=== PATIENT | female | born 1975 | race African-American/Black ===

== ENCOUNTER 2018-02-10 21:36 | Emergency (ER) | payer OTHER ==
[2018-02-10 21:41] VITALS: BP 101/59; PULSE 76; TEMP 98.3; BMI 28.1
--- NOTE | 2018-02-10 21:44 | PDOC ---
Rapid Medical Evaluation Chief Complaint: Pain Time Seen by Provider: 02/10/18 21:42 Medical Evaluation: Allergies Allergy/AdvReac Type Severity Reaction Status Date / Time No Known Allergies Allergy Verified 02/10/18 21:41 Vital Signs Temp Pulse Resp BP Pulse Ox 98.3 F 76 18 101/59 100 02/10/18 21:37 02/10/18 21:37 02/10/18 21:37 02/10/18 21:37 02/10/18 21:37 02/10/18 21:43 I have performed a brief in-person evaluation of this patient. The patient presents with a chief complaint of: left rib pain x 1 week Pertinent physical exam findings: well appearing, no SOB, lungs ctab I have ordered the following: x-ray, urine The patient will proceed to the ED for further evaluation. Discharge Disposition - Diagnosis Rib pain on left side - Referrals - Patient Instructions - Post Discharge Activity
--- NOTE | 2018-02-10 22:00 | PDOC ---
History of Present Illness - General Chief Complaint: Pain Stated Complaint: PAIN, ACUTE Time Seen by Provider: 02/10/18 21:42 - History of Present Illness Initial Comments: 6-year-old healthy active female with past medical history significant for hypothyroidism presents for evaluation of atraumatic onset of left-sided mid back pain 5 days. No radiation of symptoms her pain is exacerbated with activity relieved with rest and free of radiation. 02/10/18 21:57 Past History - Past Medical History Allergies/Adverse Reactions: Allergies Allergy/AdvReac Type Severity Reaction Status Date / Time No Known Allergies Allergy Verified 02/10/18 21:41 Home Medications: Ambulatory Orders Hydrocortisone [Cortef -] 20 mg PO DAILY 05/31/16 Levothyroxine [Synthroid -] 100 mcg PO DAILY 05/31/16 COPD: No Thyroid Disease: Yes - Suicide/Smoking/Psychosocial Hx Smoking History: Never smoked Hx Alcohol Use: No Drug/Substance Use Hx: No Substance Use Type: None Review of Systems - Review of Systems Musculoskeletal: Yes: Back Pain All Other Systems: Reviewed and Negative *Physical Exam - Vital Signs Last Vital Signs Temp Pulse Resp BP Pulse Ox 98.3 F 76 18 101/59 100 02/10/18 21:37 02/10/18 21:37 02/10/18 21:37 02/10/18 21:37 02/10/18 21:37 - Physical Exam Comments: GENERAL: The patient is awake, alert, and fully oriented, in no acute distress. HEAD: Normal with no signs of trauma. EYES: sclera anicteric, conjunctiva clear. ENT: Ears normal NECK: Normal range of motion LUNGS: Breath sounds equal, clear to auscultation bilaterally. No wheezes, and no crackles. HEART: S1 and S2 without murmur, rub or gallop. ABDOMEN: Soft, nontender, normoactive bowel sounds. No guarding, no rebound. No masses. EXTREMITIES: Normal range of motion, no edema. No clubbing or cyanosis. No cords, erythema, or tenderness. NEUROLOGICAL: Cranial nerves II through XII grossly intact. Normal speech, normal gait. PSYCH: Normal mood, normal affect. SKIN: Warm, Dry, normal turgor, no rashes or lesions noted. Thoracic spine skin color and temperature are normal there is mild tenderness about the intercostals about ribs 10 and 11 and 12. She has no gross sensorimotor deficits in either upper or lower extremities. She's neurovascularly intact her pain is exacerbated with rotation to the right side pain is on the left side. 02/10/18 21:58 Medical Decision Making - Medical Decision Making no Relief with Toradol her chest x-ray and a left-sided rib series as well as a UA 02/10/18 22:36 *DC/Admit/Observation/Transfer Diagnosis at time of Disposition: Intercostal muscle strain Diagnosis at time of Disposition: (Ruled Out): Rib pain on left side - Referrals Referrals: Cornelio Jean [Non Staff, Medical] - - Patient Instructions Printed Discharge Instructions: Muscle Strain - Post Discharge Activity
[2018-02-10] MEDS ORDERED: KETOROLAC TROMETHAMINE 60 MG/2 ML VIAL ONE (22:19)
[2018-02-10] MEDS ORDERED: KETOROLAC TROMETHAMINE 60 MG/2 ML VIAL IM ONE (22:19)
[2018-02-10 22:57] LABS: URINE APPEARANCE CLEAR; URINE BILIRUBIN NEGATIVE (<2.0 mg/dL); URINE COLOR YELLOW; URINE GLUCOSE (UA) NEGATIVE (NEGATIVE); URINE KETONE NEGATIVE (NEGATIVE); URINE LEUK ESTERASE NEGATIVE (NEGATIVE); URINE NITRITE NEGATIVE (NEGATIVE); URINE PROTEIN NEGATIVE (NEGATIVE); URINE UROBILINOGEN NEGATIVE mg/dL (0.2-1.0)
--- NOTE | 2018-02-10 23:17 | PDOC ---
*Physical Exam - Vital Signs Last Vital Signs Temp Pulse Resp BP Pulse Ox 98.3 F 76 18 101/59 100 02/10/18 21:37 02/10/18 21:37 02/10/18 21:37 02/10/18 21:37 02/10/18 21:37 - Physical Exam Comments: 02/10/18 23:17 X-rays negative. Clinical presentation consistent with MSK pain. Will rx NSAIDS and muscle relaxants. ED Treatment Course - ADDITIONAL ORDERS Additional order review: Laboratory Results 02/10/18 02/10/18 22:40 21:50 Urine Color Yellow Urine Appearance Clear Urine pH 5.0 Ur Specific [place] 1.019 Urine Protein Negative Urine Glucose (UA) Negative Urine Ketones Negative Urine Blood Negative Urine Nitrite Negative Urine Bilirubin Negative Urine Urobilinogen Negative Ur Leukocyte Esterase Negative Urine HCG, Qual Negative - Medications Given in the ED: ED Medications Discontinued Medications Generic Name Dose Route Start Last Admin Trade Name Freq PRN Reason Stop Dose Admin Ketorolac Tromethamine 60 mg 02/10/18 22:19 02/10/18 22:23 Toradol Injection - IM 02/10/18 22:20 60 mg ONCE ONE Administration *DC/Admit/Observation/Transfer Diagnosis at time of Disposition: Intercostal muscle strain - Referrals Referrals: Cornelio Jean [Non Staff, Medical] - - Patient Instructions Printed Discharge Instructions: Muscle Strain - Post Discharge Activity
== END 2018-02-10 23:40 | disposition home or self-care (01) ==
LOC: JER 21:36 → JERFT 21:36 → JER 23:40
PROC: 3E0233Z Introduction of Anti-inflammatory into Muscle, Percutaneous Approach (ICD-10-PCS; principal; 2018-02-10)
DX: S29.011A Strain of muscle and tendon of front wall of thorax, initial encounter (principal); X58.XXXA Exposure to other specified factors, initial encounter; Y93.89 Activity, other specified; Y92.89 Other specified places as the place of occurrence of the external cause; Y99.8 Other external cause status; E03.9 Hypothyroidism, unspecified
CPT/HCPCS: 71046-TC-FY; 71101-TC-FY; 81003; 84703; 87086; 99281-25

== ENCOUNTER 2018-06-27 12:33 | Emergency (ER) | payer OTHER ==
[2018-06-27 12:47] VITALS: BMI 26.6
[2018-06-27 13:02] LABS: BASO % 0.9 % (0-2.0); EOS % 4.9 % (0-4.5); HEMATOCRIT 37.7 % (32.4-45.2); LYMPH % 42.5 % (8-40); MCH 30.5 pg (25.7-33.7); MCHC 34.5 g/dl (32.0-36.0); MEAN CELL VOLUME 88.6 fl (80-96); MEAN PLT VOLUME 8.2 fl (7.5-11.1); MONO % 5.9 % (3.8-10.2); NEUT % 45.8 % (42.8-82.8); PLATELET COUNT 229 K/MM3 (134-434); RBC 4.26 M/mm3 (3.60-5.2); RDW 13.2 % (11.6-15.6); WHITE BLOOD COUNT 8.2 K/mm3 (4.0-10.0)
--- NOTE | 2018-06-27 13:10 | PDOC ---
History of Present Illness - General Chief Complaint: Chest Pain Stated Complaint: CHEST PAIN/DIZZINESS Time Seen by Provider: 06/27/18 12:53 - History of Present Illness Initial Comments: 06/27/18 12:55 43 yo F with h/o hypothyroidism who p/w lightheadedness, and chest discomfort. Patient reports episode of lightheadedness and "blurry vision," this morning when she woke up from sleep and stood up lasting for 10 minutes. NO LOC weakness , associated with SOB, and tingling of distal extremities. Also endorses sharp, migrating, pleuritic, retrosternal to right sided chest pain x 1 week, with no identifiable triggers or alleviators. Denies chest trauma, repetitive lifting, straining. Patient denies N/V, cough, wheezing, SILVERMAN, neck stiffness, palpitations, F,C, urinary complaints, abdominal pain, diarrhea, constipation, BPR, hematuria, weakness, sensory changes. PMHx: as noted above. Denies h/o ACS/[place], stent placement, CABG, abnml stress testing. Denies h/o endoscopy or colonosocpy. ROS: as noted SHx: Denies Etoh, IVDA, tobacco use Allergies: NKDA Past History - Past Medical History Allergies/Adverse Reactions: Allergies Allergy/AdvReac Type Severity Reaction Status Date / Time No Known Allergies Allergy Verified 06/27/18 12:47 Home Medications: Ambulatory Orders Hydrocortisone [Cortef -] 20 mg PO DAILY 05/31/16 Levothyroxine [Synthroid -] 100 mcg PO DAILY 05/31/16 Cyclobenzaprine HCl 7.5 mg PO HS #7 tablet 02/10/18 Diclofenac Sodium 50 mg PO BID #14 tablet. 02/10/18 COPD: No Thyroid Disease: Yes - Immunization History Immunization Up to Date: Yes - Suicide/Smoking/Psychosocial Hx Smoking History: Never smoked Information on smoking cessation initiated: No Hx Alcohol Use: No Drug/Substance Use Hx: No Substance Use Type: None Review of Systems - Review of Systems Comments:: 06/27/18 12:56 GENERAL/CONSTITUTIONAL: No fever or chills. No weakness. HEAD, EYES, EARS, NOSE AND THROAT:+ change in vision. No ear pain or discharge. No sore throat. CARDIOVASCULAR: + chest pain and shortness of breath RESPIRATORY: + SOB. No cough, wheezing, or hemoptysis. GASTROINTESTINAL: No nausea, vomiting, diarrhea or constipation. GENITOURINARY: No dysuria, frequency, or change in urination. MUSCULOSKELETAL: No joint or muscle swelling or pain. No neck or back pain. SKIN: No rash NEUROLOGIC:+ lightheadedness. No headache, vertigo, loss of consciousness, or change in strength ENDOCRINE: No increased thirst. No abnormal weight change HEMATOLOGIC/LYMPHATIC: No anemia, easy bleeding, or history of blood clots. ALLERGIC/IMMUNOLOGIC: No hives or skin allergy. *Physical Exam - Vital Signs Last Vital Signs Temp Pulse Resp BP Pulse Ox 99.5 F 88 20 101/71 98 06/27/18 12:45 06/27/18 12:45 06/27/18 12:45 06/27/18 12:45 06/27/18 12:48 - Physical Exam Comments: 06/27/18 12:56 GENERAL: Awake, alert, and fully oriented, in no acute distress HEAD: No signs of trauma, normocephalic, atraumatic EYES: PERRLA, EOMI, sclera anicteric, conjunctiva clear ENT: Hearing grossly normal, nares patent, oropharynx clear without exudates. Moist mucosa NECK: Normal ROM, supple, no lymphadenopathy, JVD, or masses LUNGS: No distress, speaks full sentences, clear to auscultation bilaterally HEART: Regular rate and rhythm, normal S1 and S2, no murmurs, rubs or gallops, peripheral pulses normal and equal bilaterally. ABDOMEN: Soft, nontender, normoactive bowel sounds. No guarding, no rebound. No masses EXTREMITIES : Normal inspection, Normal range of motion, no edema. No clubbing or cyanosis. NEUROLOGICAL: Cranial nerves II through XII grossly intact. Normal speech, normal gait, no focal sensorimotor deficits. Normal JORDAN, and absent dysmetria on FTN or HTS. SKIN: Warm, Dry, normal turgor, no rashes or lesions noted Moderate Sedation - Procedure Monitoring Vital Signs: Procedure Monitoring Vital Signs Temperature 99.5 F 06/27/18 12:45 Pulse Rate 88 06/27/18 12:45 Respiratory Rate 20 06/27/18 12:45 Blood Pressure 101/71 06/27/18 12:45 O2 Sat by Pulse Oximetry (%) 98 06/27/18 12:48 Heart Score/ECG Review - History History: Slightly suspicious - Electrocardiogram EKG: Normal - Age Age: </= 45 - Risk Factors Risk Factors Heart Score: Yes Positive family hx of cardiac disease Based on the list above the patient has:: 1-2 risk factors - Troponin Troponin: </= normal limit - Score Heart Score - Total: 1 ED Treatment Course - LABORATORY CBC & Chemistry Diagram: 06/27/18 11:51 06/27/18 11:51 Medical Decision Making - Medical Decision Making 06/27/18 13:18 43 yo F with h/o hypothyroidism who p/w lightheadedness, and chest discomfort. VSS, AF, A&OX3. Physical exam unremarkable. ACS/KY r/o. R/o PNA. Low risk PE based on Weils criteria. R/o PE. Will consider MSK related pain or costochondritis, pericarditis, anxiety related disorder. Low suspicion for VBI/ TIA. Asses for thryoid dysfunction, cardiac dysarrythmias, electrolyte abnml, metabolic and toxic derangements, acid-base disturbances, infection. ED Course: CBC, CMP, Cardiac Pr. D-Dimer, EKG, TSH CXR CBC: Unremarkable 06/27/18 13:25 EKG: NSR with absent TANG, STD. Nml interval duration and axis. 06/27/18 14:08 CBC,CMP: Unremarkable Trop: Neg UA: Neg 06/27/18 14:15 Bedside cardiac U/S: No evidence of pericardial effusion or wall motion abnml. No evidence of Rt. heart strain. Heart score~1 06/27/18 14:16 CXR: No acute change. Unremarkable Patient stable fo d/c with return precautions. 06/27/18 16:00 D-dimer: Neg Trop: Neg ( repeat) Toradol Patient stable for d/c with return precautions. Advised to f/u with PMD. *DC/Admit/Observation/Transfer Diagnosis at time of Disposition: Atypical chest pain, Pre-syncope - Discharge Dispostion Condition at time of disposition: Stable Decision to Admit order: No - Referrals Referrals: ON STAFF,NOT [Primary Care Provider] - - Patient Instructions Printed Discharge Instructions: DI for Syncope in Adults (Fainting), DI for Atypical Chest Pain Additional Instructions: Please return to the emergency department with any new or worsening symptoms or concerns. Please follow up with your primary care physician within 72 hours. - Post Discharge Activity - Attestations Physician Attestion: 06/27/18 12:57 I attest to the information provided in this note.
[2018-06-27] MEDS ORDERED: SODIUM CHLORIDE 1,000 ML IV STA (13:40)
--- NOTE | 2018-06-27 13:42 | PDOC ---
Attending Attestation - HPI HPI: 06/27/18 13:43 The patient is a 43 year old female, with a significant past medical history of hypothyroidism who presents to the emergency department with lightheadedness and right sided chest pain this morning. She states she stood up and felt she was going to pass out with some associated blurred vision this morning. She denies LOC. She reports some mild associated SOB. She reports right sided pleuritic chest pain for about a week and a half which was exacerbated this morning. She states the chest pain is exacerbated with breathing. The patient denies headache and dizziness. The patient denies fever, chills, nausea, vomit, diarrhea and constipation. The patient denies dysuria, frequency , urgency and hematuria. Allergies: NKDA Family Hx: poor vascular flow s/p arterial blood clot s/p foot amputation ( Mother) - Medical Decision Making 06/27/18 13:47 Documentation prepared by Judit Couch, acting as caregivers non medical for Antonella Nesbitt MD <Judit Couch - Last Filed: 06/27/18 13:43> - Resident Resident Name: Anup Rockwell - ED Attending Attestation I have performed the following: I have examined & evaluated the patient, The case was reviewed & discussed with the resident, I agree w/resident's findings & plan, Exceptions are as noted - Physicial Exam PE: 06/27/18 14:13 Awake alert no acute distress lungs are clear bilaterally chest wall is nontender. Heart is regular without any murmurs rubs or gallops abdomen is soft nontender extremities are warm and well-perfused no noted edema tenderness skin is warm and dry no rash neurologically patient is alert and oriented 3 moves all 4 extremities. - Medical Decision Making 06/27/18 14:13 43-year-old female history of thyroid here with a near syncopal episode. Also complaining of pleuritic chest pain 1-1/2 weeks. No known history of PE or DVT no risk factors. No family history of DVT however does have a family history of vascular disease denies cough fevers chills no recent travel no leg swelling or calf pain. Differential diagnosis includes pleuritic pain from pericarditis, chest wall pain or costochondritis pneumonia effusion PE. We will send a d- dimer CBC CMP troponin EKG. Perform a focused ED bedside echo Focused ED TTE performed indications chest pain 4 views of the heart were obtained (parasternal long parasternal short subxiphoid and apical ) no pericardial effusion noted. Overall the cart as good contractility no RV dilation or strain noted. No wall motion abnormalities Impression normal TTE <Antonella Nesbitt - Last Filed: 06/27/18 15:35> Heart Score/ECG Review #1 ECG reviewed & interpreted by me at: 12:40 General ECG Interpretation: Sinus Rhythm, Normal Rate, Normal Intervals, No acute ischemic changes <Antonella Nesbitt - Last Filed: 06/27/18 15:35> Procedures - Bedside Ultrasound Bedside Ultrasound: Cardiac Other: see mdm <Antonella Nesbitt - Last Filed: 06/27/18 15:35>
[2018-06-27 13:46] LABS: URINE APPEARANCE SLCLOUDY; URINE BILIRUBIN NEGATIVE (<2.0 mg/dL); URINE COLOR YELLOW; URINE GLUCOSE (UA) NEGATIVE (NEGATIVE); URINE KETONE NEGATIVE (NEGATIVE); URINE LEUK ESTERASE NEGATIVE (NEGATIVE); URINE NITRITE NEGATIVE (NEGATIVE); URINE PROTEIN NEGATIVE (NEGATIVE)
[2018-06-27 13:47] LABS: HCG,QUALITATIVE URINE Negative
[2018-06-27 13:57] LABS: ALBUMIN 3.4 g/dl (3.4-5.0); ALK PHOS 63 U/L (45-117); ANION GAP 7 MMOL/L (8-16); BILIRUBIN,TOTAL 0.4 mg/dL (0.2-1); BLOOD UREA NITROGEN 14 mg/dL (7-18); CALCIUM 8.6 mg/dL (8.5-10.1); CHLORIDE 104 mmol/L (98-107); CO2 28 mmol/L (21-32); GLUCOSE,RANDOM 82 mg/dL (74-106); SGOT/AST 18 U/L (15-37); SGPT/ALT 17 U/L (13-61); SODIUM 139 mmol/L (136-145); TOT PROT 6.6 g/dl (6.4-8.2)
[2018-06-27] MEDS ORDERED: KETOROLAC TROMETHAMINE 30 MG/1 ML VIAL IVPUSH ONE (16:13)
[2018-06-27] MEDS ORDERED: KETOROLAC TROMETHAMINE 30 MG/1 ML VIAL ONE (16:19)
[2018-06-27 16:28] VITALS: BP 135/80; PULSE 87; TEMP 98.3
--- NOTE | 2018-06-28 11:18 | EKG ---
Test Reason : Blood Pressure : / mmHG Vent. Rate : 092 BPM Atrial Rate : 092 BPM P-R Int : 146 ms QRS Dur : 084 ms QT Int : 358 ms P-R-T Axes : 067 058 047 degrees QTc Int : 442 ms NORMAL SINUS RHYTHM POSSIBLE LEFT ATRIAL ENLARGEMENT BORDERLINE ECG WHEN COMPARED WITH ECG OF 17-NOV-2002 08:58, ST VARIATION Confirmed by GABRIELA NELSON MD ([id number]) on 06/28/2018 11:17:50 AM Referred By: Confirmed By:GABRIELA NELSON MD
== END 2018-06-27 16:28 | disposition home or self-care (01) ==
LOC: JER 12:33
PROC: 3E0333Z Introduction of Anti-inflammatory into Peripheral Vein, Percutaneous Approach (ICD-10-PCS; principal; 2018-06-27)
PROC: 3E0337Z Introduction of Electrolytic and Water Balance Substance into Peripheral Vein, Percutaneous Approach (ICD-10-PCS; 2018-06-27)
DX: R07.89 Other chest pain (principal); R55 Syncope and collapse; E03.9 Hypothyroidism, unspecified
CPT/HCPCS: 36415; 71045-TC-FY; 80053; 81003; 82550; 84443; 84484; 84703; 85025; 85379; 93005; 93010; 99285-25; J7030